=== PATIENT | male | born 1990 | race Caucasian/White ===

== ENCOUNTER 2018-03-23 08:59 | Day surgery (SDC) | payer OTHER ==
[~2018-03-23] VITALS: Ht 170.2 cm; Wt 63.3 kg
[2018-03-23 09:26] VITALS: BP 119/78; PULSE 57; TEMP 99
[2018-03-23] MEDS ORDERED: MIRALAX510G PO (12:07)
[2018-03-23 12:10] VITALS: BP 111/63; PULSE 54; TEMP 98.2
[2018-03-23 12:25] VITALS: BP 110/64; PULSE 57
== END 2018-03-23 12:38 | disposition home or self-care (01) ==
LOC: SDCO 08:59
DX: K64.0 First degree hemorrhoids (principal); K58.1 Irritable bowel syndrome with constipation
CPT/HCPCS: J2250; J2405; J3010; J7030